=== PATIENT | female | born 1955 | race Caucasian/White ===

== ENCOUNTER 2020-03-14 20:40 | Inpatient (IN) | payer MEDICARE, OTHER ==
[~2020-03-14] VITALS: Ht 170.2 cm; Wt 104.8 kg
--- NOTE | 2020-03-14 21:00 | NUR ---
BIBS FOR C/O "I'M SHAKING, CAN NOT HOLD ANYTHING" ALSO W/ C/O CP AND SOB AND H/A TO ER BED 2 AWIATING MD MOJICA
[2020-03-14] MEDS ORDERED: ONDANSETRON HCL/PF 4 MG/2 ML VIAL ONE (21:28)
[2020-03-14] MEDS ORDERED: MORPHINE SULFATE INJ 4 MG/ML DISP.SYRIN ONE (21:28)
[2020-03-14] MEDS ORDERED: MORPHINE SULFATE INJ 2 MG/ML DISP.SYRIN IV ONE (21:30)
[2020-03-14] MEDS ORDERED: ONDANSETRON HCL/PF 4 MG/2 ML VIAL IVP ONE (21:30)
[2020-03-14 21:33] LABS: BASOPHILS % (AUTO) 0.7 % (0.0-2.0); EOSINOPHILS % (AUTO) 2.3 % (0.0-6.0); HEMATOCRIT 39 % (33-45); HEMOGLOBIN 11.9 g/dL (11.5-14.8); LYMPHOCYTES # (AUTO) 1.3 /CMM (0.8-4.8); LYMPHOCYTES % (AUTO) 29.9 % (20.0-44.0); MEAN CORPUSCULAR HGB CONC 31 g/dl (31.0-36.0); MEAN CORPUSCULAR VOLUME 81 fL (82-100); MONOCYTES # (AUTO) 0.4 /CMM (0.1-1.30); MONOCYTES % (AUTO) 8.4 % (2.0-12.0); NEUTROPHILS # (AUTO) 2.6 /CMM (1.8-8.9); NEUTROPHILS % (AUTO) 58.7 % (43.0-81.0); PLATELET COUNT (AUTO) 167 /CMM (150-450); RED BLOOD CELL COUNT(AUTO) 4.77 MIL/uL (4.0-5.2); WHITE BLOOD COUNT (AUTO) 4.4 K/uL (4.3-11.0)
[2020-03-14 21:42] LABS: CALCIUM, SERUM 9.2 mg/dL (8.5-10.1); CARBON DIOXIDE 28 mmol/L (21-32); CHLORIDE 104 mmol/L (98-107); GLUCOSE 255 mg/dL (74-106); POTASSIUM 5.1 mmol/L (3.5-5.1); SODIUM SERUM 140 mmol/L (136-145); UREA NITROGEN, BLOOD 37 mg/dL (7-18)
--- NOTE | 2020-03-14 21:48 | NUR ---
COVID SWAB COLLECTED AND SENT TO LAB
--- NOTE | 2020-03-14 21:52 | NUR ---
TECH AT BEDSIDE FOR XRAY
[2020-03-14 21:54] LABS: ALANINE AMINOTRANSFERASE 64 U/L (12-78); ALBUMIN 3.4 g/dL (3.4-5.0); ALKALINE PHOSPHATASE 98 U/L (46-116); ASPARTATE AMINOTRANSFERASE 40 U/L (15-37); B-TYPE NATRIURETIC PEPTIDE 42 PG/ML (0-125); BILIRUBIN,DIRECT 0.1 mg/dL (0.0-0.2); BILIRUBIN,TOTAL 0.2 mg/dL (0.2-1.0); TOTAL PROTEIN, SERUM 8.2 g/dL (6.4-8.2)
[2020-03-14] MEDS ORDERED: IV NS 0.9% 1,000 ML BAG IV ONE (22:30)
--- NOTE | 2020-03-14 22:46 | NUR ---
covid swab sample collected and sent to the lab.
[2020-03-15] VITALS (7 sets, daily range): BP systolic 113–140; BP diastolic 53–77
[2020-03-15] MEDS ORDERED: ACETAMINOPHEN 325 MG TABLET PO PRN (00:30)
[2020-03-15] MEDS ORDERED: Z GUARD REMEDY 2 OZ OINT TP PRN (00:30)
[2020-03-15] MEDS ORDERED: ONDANSETRON HCL/PF 4 MG/2 ML VIAL IVP PRN (00:30)
[2020-03-15] MEDS ORDERED: MAGNESIUM HYDROXIDE 30 ML UDC PO PRN (00:30)
[2020-03-15] MEDS ORDERED: MAG HYDROX/AL HYDROX/SIMETH 30 ML UDC PO PRN (00:30)
[2020-03-15] MEDS ORDERED: MIRT15TA7 PO (01:09)
[2020-03-15] MEDS ORDERED: LISI1TAB32 PO (01:09)
[2020-03-15] MEDS ORDERED: GABA-532 PO (01:09)
[2020-03-15] MEDS ORDERED: METF-442 PO (01:09)
[2020-03-15] MEDS ORDERED: DULO20CA PO (01:09)
[2020-03-15] MEDS ORDERED: TRAZ-257 PO (01:09)
[2020-03-15] MEDS ORDERED: HYDR-3642 PO (01:09)
[2020-03-15] MEDS ORDERED: GLIP5TAB13 PO (01:09)
[2020-03-15] MEDS ORDERED: BACL10TA PO (01:09)
[2020-03-15] MEDS ORDERED: ARIP20TA4 PO (01:09)
[2020-03-15] MEDS ORDERED: MONT10TA22 PO (01:09)
[2020-03-15] MEDS ORDERED: ALLO100T PO (01:09)
--- NOTE | 2020-03-15 01:33 | NUR ---
pt was tansferred to the floor under ACLS
[2020-03-15] MEDS: ZOLPIDEM TARTRATE 5 MG TABLET PO PRN (02:06)
[2020-03-15] MEDS: HYDROCODONE/APAP 5/325MG TABLET PO PRN ×2 (02:07→21:08)
--- NOTE | 2020-03-15 02:10 | NUR ---
TELE/RN NOTES PATIENT REPORTED PAIN OF 6/10 IN MID CHEST FOR PAIN MEDICATION NORCO GIVEN AND REQUESTED FOR MEDICATION TO HELP HER SLEEP, ABLE TO TOLERATE FLUIDS, ALERT, ORIENTED X3.
--- NOTE | 2020-03-15 02:12 | NUR ---
TELE/RN NEW ADMISSION NOTES PATIENT RECEIVED ON A GURNEY ACCOMPANIED BY ER NURSE AND ATTENDANT, ON TELE AT SINUS RHYTHM, PSTIENT IS ALERT, ORIENTED X3, AMBULATORY WITH REPORTED MID CHEST PAIN OF 6/10 AND UNABLE TOP SLEEP THAT REQUIRE SLEEPING MED. MEDICATION FOR HOME REPORTED, PATIENT BELONGINGS CHECK AND WITH GRIFFIN 44 DOLLARS PREFER TO BE KEPT AT BEDSIDE, WITNESSED BY FURNACE COMBUSTION ANALYST. ROOM ORIENTATION PROVIDED, SKIN INTACT, ABLE TO DRINK AND EAT TOLERATED, MONITORED FOR ANY CHANGES,BED LOCKED, CALL LIGHTS WITHIN REACH. MD BALDWIN IS THE ADMITING MD.
--- NOTE | 2020-03-15 06:00 | NUR ---
MS/RN NOTES HOME MEDICATIONS BROUGHT TO PHARMACY WITH PATIENT CONSENT AND SIGNED.
--- NOTE | 2020-03-15 07:11 | NUR ---
321-2 TELE/RN NOTES PATIENT ABLE TO SLEEP FOR FEW HOURS, ALERT, ORIENTED X3, ABLE TO VERBALIZE NEEDS, KEPT COMFORTABLE, PAIN MANGAED BY MEDICATION. BED LOCKED, CALL LIGTHS WITHIN REACH, WILL ENDORSE TO AM RN FOR THAI. IV SITE ON LEFT AC, PATENT..
[2020-03-15] MEDS ORDERED: hydrOXYzine 10 MG TABLET PO SCH (08:00)
[2020-03-15] MEDS ORDERED: BACLOFEN (10 MG) 10 MG TABLET PO PRN (08:00)
--- NOTE | 2020-03-15 08:03 | NUR ---
SYRUP MACHINE LABORER NOTE PATIENT IN BED , ALERT ORIENTED X4, ON RA NO SOB NOTED AT THIS TIME, LT AC HL INTACT AND FLUSHED WELL , BED IN LOWEST AND LOCKED POSITION , SEEN BY DR MARSHALL AT BEDSIDE,PLAN OF CARE DISCUSSED WITH PATIENT, WILL MONITOR
[2020-03-15] MEDS ORDERED: MAGN250T2 PO (08:28)
[2020-03-15] MEDS ORDERED: OMEP40CA13 PO (08:28)
[2020-03-15] MEDS ORDERED: ACET-2605 PO (08:28)
[2020-03-15] MEDS ORDERED: ATOR40TA PO (08:28)
[2020-03-15] MEDS ORDERED: MELA1TAB25 PO (08:28)
[2020-03-15] MEDS: GABAPENTIN 100 MG CAPSULE PO SCH ×3 (08:34→16:14)
[2020-03-15] MEDS: MONTELUKAST SODIUM (10MG) 10 MG TABLET PO SCH (08:34)
[2020-03-15] MEDS ORDERED: INSU100V7 SQ (08:34)
[2020-03-15] MEDS: glipiZIDE 5 MG TABLET PO SCH (08:34)
[2020-03-15] MEDS: DULOXETINE HCL 20 MG CAPSULE.DR PO SCH ×2 (08:35→16:14)
[2020-03-15] MEDS: ATORVASTATIN 10 MG TABLET PO SCH (08:35)
[2020-03-15] MEDS: ASPIRIN 81 MG TAB.CHEW PO SCH (08:36)
[2020-03-15] MEDS: ALLOPURINOL 100 MG TABLET PO SCH (08:36)
[2020-03-15] MEDS: CARVEDILOL 12.5 MG TABLET PO SCH ×2 (08:37→21:09)
[2020-03-15] MEDS: MIRTAZAPINE 15 MG TABLET PO SCH (08:38)
[2020-03-15 08:40] LABS: THYROID STIMULATING HORMONE 1.616 uIU/mL (0.358-3.74)
[2020-03-15 08:41] LABS: MAGNESIUM 2.1 mg/dL (1.8-2.4); PHOSPHORUS 3.7 mg/dL (2.5-4.9)
--- NOTE | 2020-03-15 08:41 | NUR ---
CONCRETE FOREMAN NOTE 2D ECHO DONE ORDERED
[2020-03-15] MEDS: IV NS 0.9% 1,000 ML IV PRN ×2 (08:44→17:10)
--- NOTE | 2020-03-15 11:14 | NUR ---
vanessa downs note patient refused dvt md nery aware ,offered and explained of importance but still refused able to ambulate well Addendum: 03/15/20 at 1120 by [address]IVA HOGUE RN dr rachid kendall that bun 37 creat 2.0 Addendum: 03/15/20 at 1143 by SIVA HOGUE RN vanessa melendez collected as ordered
--- NOTE | 2020-03-15 11:47 | NUR ---
KITCHEN MECHANIC NOTE SPOKE WITH DR ALBERT NOTIFIED THAT PER MED RECON PATIENT TAKING INSULIN LANTUS STATED THAT WILL CHECK IT OUT
[2020-03-15 12:23] LABS: CREATININE, URINE 27.6 MG/DL (30.0-125.0); URINE TOTAL PROTEIN 4.6 mg/dL (0-11.9)
[2020-03-15 13:07] LABS: APPEARANCE,URINE CLEAR (CLEAR); BILIRUBIN,URINE NEGATIVE (NEGATIVE); BLOOD, URINE NEGATIVE Ery/uL (NEGATIVE); COLOR,URINE YELLOW (YELLOW); KETONES,URINE NEGATIVE (NEGATIVE); LEUKOCYTE ESTERASE ,URINE NEGATIVE (NEGATIVE); NITRITE, URINE NEGATIVE (NEGATIVE); PROTEIN,URINE NEGATIVE (NEGATIVE); UGLUCOSE >=1000 mg/dL (NEGATIVE); UROBILINOGEN,URINE 0.2 EU/dL (0.2)
[2020-03-15 13:16] LABS: BACTERIA,URINE None seen /HPF (None Seen); RBC,URINE NONE SEEN /HPF (0-2); SQUAMOUS EPITHELIAL CELL,UR Few /HPF (None Seen); WBC,URINE NONE SEEN /HPF (0-3)
[2020-03-15 13:17] LABS: EOSINOPHIL,URINE None Seen
--- NOTE | 2020-03-15 13:53 | NUR ---
television news photographer note spoke with dr marshall notified that vte score 2 patient reused dvt pump ordered Lovenox per pharmacy dose Addendum: 03/15/20 at 1548 by SIVA HOGUE RN REFUSED DVT PUMPS TO HAVE DR MARSHALL NOTIFIED
[2020-03-15] MEDS ORDERED: ENOXAPARIN SODIUM 100 MG/ML DISP.SYRIN SQ SCH (14:30)
[2020-03-15] MEDS ORDERED: ENOXAPARIN SODIUM 30 MG/0.3 ML DISP.SYRIN SQ SCH (15:00)
--- NOTE | 2020-03-15 15:49 | NUR ---
MACHINE BRUSH MAKER NOTE AMBULATED WELL AROUND HER ROOM , NOT IN DISTRESS
[2020-03-15] MEDS: BLOOD SUGAR DIAGNOSTIC 1 EACH STRIP IN SCH ×3 (17:37→21:06)
[2020-03-15] MEDS ORDERED: DEXTROSE 50%-WATER 50 ML DISP.SYRIN IV PRN (18:30)
--- NOTE | 2020-03-15 18:51 | NUR ---
JAMAL RN NOTE ALL NEEDS ATTENDED, NOT IN DISTRESS
--- NOTE | 2020-03-15 20:00 | NUR ---
MS/RN OPENING NOTES RECEIVED PATIENT IN BED, AWAKE, ALERT X3, ABLE TO VERBALIZE NEEDS, ON ROOM AIR, ABLE TO EAT DINNER AND BLOOD SUGAR WAS ELEVATED WITH NEEDED COVERAGE OF INSULIN ORDERED, PATIENT AMBULATORY AND BED LOCKED, CALL LIGHTS WITHIN REACH, WILL MONITOR, RECEIVED ENDORSEMENT FROM AM RN FOR THAI.
--- NOTE | 2020-03-15 20:10 | NUR ---
MS/RN NOTES IV FLUIDS INFUSING ON LEFT AC. AT 125 ML/HR, PATIENT ABLE TO USE CALL LIGHTS
[2020-03-15] MEDS: INSULIN REGULAR, HUMAN 100 UNIT/ML 3 ML VIAL SQ PRN (21:37)
[2020-03-16] MEDS: ZOLPIDEM TARTRATE 5 MG TABLET PO PRN (00:20)
--- NOTE | 2020-03-16 00:21 | NUR ---
MS/RN NOTES PATIENT REPORTED PAIN OF 7/10 BACK PAIN, NORCO 5-325 MG PO PRESCRIBED NEEDED, PATIENT PROVIDED MEDICATION SIDE EFFECTS, VERBALZIED UNDERSTANDING, MONITORED FOR PAIN RELIEF.
--- NOTE | 2020-03-16 00:22 | NUR ---
ms/rn notes PATIENT REQUESTED FOR SLEEPING PILL, NEEDED KWAME REQUESTED WITH PRESCRIBED DOSE TO MONITOR SLEEP.
[2020-03-16] MEDS: IV NS 0.9% 1,000 ML IV PRN (03:01)
--- NOTE | 2020-03-16 06:20 | NUR ---
321-2 MS/RN NOTES PATIENT ALERT, ORIENTED, ABLE TO VERBALZIE NEEDS,HAD AMBULATED WITH ASSIST IN HALLWAY, RESPIRATIONS EVEN AND UNLABORED BED LOCKED,CALL LIGHTS WITHIN REACH, ATTENDED ALL NEEDS,KEPT COMFORTABLE, COMPLIANT TO TREATMENT AND MEDICATION. WILL ENDORSE TO AM RN FOR THAI.
[2020-03-16 06:22] LABS: BASOPHILS % (AUTO) 0.8 % (0.0-2.0); EOSINOPHILS % (AUTO) 3.3 % (0.0-6.0); HEMATOCRIT 37 % (33-45); HEMOGLOBIN 11.5 g/dL (11.5-14.8); LYMPHOCYTES # (AUTO) 1.8 /CMM (0.8-4.8); LYMPHOCYTES % (AUTO) 42.6 % (20.0-44.0); MEAN CORPUSCULAR HGB CONC 31 g/dl (31.0-36.0); MEAN CORPUSCULAR VOLUME 80 fL (82-100); MONOCYTES # (AUTO) 0.3 /CMM (0.1-1.30); NEUTROPHILS # (AUTO) 1.9 /CMM (1.8-8.9); NEUTROPHILS % (AUTO) 45.3 % (43.0-81.0); PLATELET COUNT (AUTO) 159 /CMM (150-450); RED BLOOD CELL COUNT(AUTO) 4.61 MIL/uL (4.0-5.2); WHITE BLOOD COUNT (AUTO) 4.3 K/uL (4.3-11.0)
[2020-03-16 06:37] LABS: ALANINE AMINOTRANSFERASE 54 U/L (12-78); ALKALINE PHOSPHATASE 80 U/L (46-116); ASPARTATE AMINOTRANSFERASE 34 U/L (15-37); BILIRUBIN,TOTAL 0.2 mg/dL (0.2-1.0); CALCIUM, SERUM 8.4 mg/dL (8.5-10.1); CARBON DIOXIDE 28 mmol/L (21-32); CHLORIDE 106 mmol/L (98-107); CHOLESTEROL 139 mg/dL (<200); CREATININE 1.1 mg/dL (0.6-1.3); GLUCOSE 201 mg/dL (74-106); HDL CHOLESTEROL 37 mg/dL (40-60); LDL 86 mg/dL (0-99); MAGNESIUM 1.6 mg/dL (1.8-2.4); PHOSPHORUS 3.2 mg/dL (2.5-4.9); POTASSIUM 4.3 mmol/L (3.5-5.1); SODIUM SERUM 142 mmol/L (136-145); TOTAL PROTEIN, SERUM 6.9 g/dL (6.4-8.2); TRIGLYCERIDES 199 mg/dL (30-150); UREA NITROGEN, BLOOD 21 mg/dL (7-18)
[2020-03-16] MEDS: BLOOD SUGAR DIAGNOSTIC 1 EACH STRIP IN SCH ×4 (06:39→11:37)
--- NOTE | 2020-03-16 06:43 | NUR ---
BS CHECK AT 188 BEFORE BREAKFAST,
[2020-03-16] MEDS: INSULIN REGULAR, HUMAN 100 UNIT/ML 3 ML VIAL SQ PRN ×2 (06:52→11:26)
--- NOTE | 2020-03-16 07:54 | NUR ---
MS/RN OPENING NOTES RECEIVED PATIENT ALERT, ORIENTED, ABLE TO VERBALIZE NEEDS, RESPIRATIONS EVEN AND UNLABORED. NO COMPLAINED OF PAIN AT THIS TIME. BED LOCKED,CALL LIGHTS WITHIN REACH, WILL CONTINUE TO MONITOR.
[2020-03-16] MEDS: ASPIRIN 81 MG TAB.CHEW PO SCH (08:11)
[2020-03-16] MEDS: ATORVASTATIN 10 MG TABLET PO SCH (08:12)
[2020-03-16] MEDS: ALLOPURINOL 100 MG TABLET PO SCH (08:12)
[2020-03-16] MEDS: MONTELUKAST SODIUM (10MG) 10 MG TABLET PO SCH (08:12)
[2020-03-16] MEDS: MIRTAZAPINE 15 MG TABLET PO SCH (08:12)
[2020-03-16] MEDS: CARVEDILOL 12.5 MG TABLET PO SCH (08:12)
[2020-03-16] MEDS: DULOXETINE HCL 20 MG CAPSULE.DR PO SCH (08:12)
[2020-03-16 08:31] VITALS: BP 130/87
[2020-03-16] MEDS: glipiZIDE 5 MG TABLET PO SCH (08:36)
[2020-03-16] MEDS: GABAPENTIN 100 MG CAPSULE PO SCH ×2 (08:36→12:34)
[2020-03-16] MEDS: HYDROCODONE/APAP 5/325MG TABLET PO PRN (08:47)
--- NOTE | 2020-03-16 08:48 | NUR ---
MS/RN NOTES PATIENT COMPLAINED OF PAIN RATED 10/10. PATIENT ASK FOR NORCO 5/325MG 1 TAB P.O. WILL CONTINUE TO MONITOR.
[2020-03-16] MEDS ORDERED: IV NS 0.9% 250 ML IV ONE (09:25)
[2020-03-16] MEDS ORDERED: IOHEXOL-350 100 ML VIAL IV ONE (09:25)
--- NOTE | 2020-03-16 09:51 | NUR ---
FIRE SUPPORT MAN/RN POST CTA PROCEDURE WELL TOLERATED BY THE PT. NOT IN RESPIRATORY DISTRESS, V/S STABLE, KEPT RESTED AND COMFORTABLE. REPORT GIVEN TO HEYDI LIRA FOR THAI.
[2020-03-16] MEDS ORDERED: METOPROLOL TARTRATE INJ 5 MG/5 ML AMPUL IVP PRN (10:00)
[2020-03-16] MEDS ORDERED: NITROGLYCERIN 0.4 MG/TAB BOTTLE SL ONE (10:00)
[2020-03-16] MEDS ORDERED: IV NS 0.9% 500 ML IV PRN (10:00)
[2020-03-16] MEDS: Magnesium 1GM/D5W 100ML PREMIX 100 ML IV SCH ×2 (10:09→11:26)
--- NOTE | 2020-03-16 15:43 | NUR ---
MS/RN NOTES PATIENT IS ALERT AND ORIENTED X4. PATIENT DENIES PAIN AT THIS. IN ROOM AIR AND SATURATION IS AT 98%. RESPIRATION REGULAR AND UNLABORED. THE PATIENT IN NO APPARENT DISTRESS. SEEN AND EXAMINED BY MD WITH ORDERS MADE AND CARRIED OUT. ALL DUE MEDICATION WAS GIVEN. PATIENT DISCHARGED AT 1510. PATIENT WAS GIVEN DISCHARGED INSTRUCTIONS AND PATIENT VERBALIZED UNDERSTANDING. THE PATIENT LEFT THE HOSPITAL ALONE IN STABLE CONDITION. GO HOME VIA [facility].
[2020-03-16 15:52] VITALS: BP 124/95
[2020-03-17] MEDS ORDERED: ALLOPURINOL 100 MG TABLET PO SCH (09:00)
[2020-03-17] MEDS ORDERED: MONTELUKAST SODIUM (10MG) 10 MG TABLET PO SCH (18:00)
== END 2020-03-16 15:10 | disposition home or self-care (01) | DRG 303 ==
LOC: ER 20:46 → TELE 03-15 01:04 → MED 03-15 09:57
DX: I25.10 Atherosclerotic heart disease of native coronary artery without angina pectoris (principal); N17.9 Acute kidney failure, unspecified; I12.9 Hypertensive chronic kidney disease with stage 1 through stage 4 chronic kidney disease, or unspecified chronic kidney disease; N18.3 Chronic kidney disease, stage 3 (moderate); E11.22 Type 2 diabetes mellitus with diabetic chronic kidney disease; E78.5 Hyperlipidemia, unspecified; G89.29 Other chronic pain; G25.0 Essential tremor; Z87.442 Personal history of urinary calculi; R51 Headache; E66.9 Obesity, unspecified; Z68.36 Body mass index [BMI] 36.0-36.9, adult; Z79.84 Long term (current) use of oral hypoglycemic drugs; E11.319 Type 2 diabetes mellitus with unspecified diabetic retinopathy without macular edema; Z79.4 Long term (current) use of insulin
CPT/HCPCS: 36415; 71045-TC; 75574; 80048-TC; 80053-TC; 80061-TC; 80076-TC; 81000-TC; 82570-TC; 82728-TC; 82962-TC; 83540-TC; 83735-TC; 83880; 84100-TC; 84155-TC; 84300-TC; 84439-TC; 84443-TC; 84484-TC; 84550-TC; 85025-TC; 87081-TC; 93307-TC; C9803-CS; G0378; J1650; J1815; J2270; J2405; J3475; J7030; J7050; Q9967; U0003-CS

== ENCOUNTER 2022-06-03 14:29 | Inpatient (IN) | payer BC, MEDICAID, OTHER ==
[~2022-06-03] VITALS: Ht 170.2 cm; Wt 102.1 kg
[~2022-06-03 14:29] MED LIST: ACET-2605 PO; ALLO100T PO; ARIP20TA4 PO; ATOR40TA PO; AZIT1PAC9 PO; BACL10TA PO; DULO20CA PO; GABA-532 PO; GABA300C PO; GLIP5TAB13 PO; HYDR-3642 PO; INDO-13 PO; INSU100V7 SQ; LISI10TA29 PO; LISI1TAB32 PO; MAGN250T2 PO; MELA1TAB25 PO; METF-442 PO; MIRT-90 PO; MIRT7.5T10 PO; MONT10TA22 PO; OMEP40CA21 PO; TRAZ-257 PO
--- NOTE | 2022-06-03 14:40 | NUR ---
RCEIVED PT WALKING IN FROM HOME C/O HR fast over 130b/min sent from clinic s/p coloscopy toay awake and alert respiration spont and easy
[2022-06-03] MEDS ORDERED: IV NS 0.9% 1,000 ML BAG IV ONE ×2 (15:00→19:00)
--- NOTE | 2022-06-03 15:06 | NUR ---
BLOOD DRAWN AND SENT TO LAB
[2022-06-03 15:12] LABS: BASOPHILS # (AUTO) 0.1 K/uL (0.0-0.2); BASOPHILS % (AUTO) 0.7 % (0.0-2.0); EOSINOPHILS % (AUTO) 0.8 % (0.0-6.0); HEMATOCRIT 41 % (33-45); LYMPHOCYTES # (AUTO) 1.9 K/uL (0.8-4.8); LYMPHOCYTES % (AUTO) 23.8 % (20.0-44.0); MEAN CORPUSCULAR HGB CONC 32 g/dl (31.0-36.0); MEAN CORPUSCULAR VOLUME 79 fL (82-100); MONOCYTES # (AUTO) 0.4 K/uL (0.1-1.30); MONOCYTES % (AUTO) 4.8 % (2.0-12.0); NEUTROPHILS # (AUTO) 5.7 K/uL (1.8-8.9); NEUTROPHILS % (AUTO) 69.9 % (43.0-81.0); PLATELET COUNT (AUTO) 180 K/uL (150-450); RED BLOOD CELL COUNT(AUTO) 5.21 MIL/uL (4.0-5.2); WHITE BLOOD COUNT (AUTO) 8.1 K/uL (4.3-11.0)
[2022-06-03 15:31] LABS: ALANINE AMINOTRANSFERASE 9 U/L (12-78); ALBUMIN 3.9 g/dL (3.4-5.0); ALKALINE PHOSPHATASE 80 U/L (46-116); ASPARTATE AMINOTRANSFERASE 11 U/L (15-37); BILIRUBIN,DIRECT 0.1 mg/dL (0.0-0.2); BILIRUBIN,TOTAL 0.4 mg/dL (0.2-1.0); CALCIUM, SERUM 9.2 mg/dL (8.5-10.1); CARBON DIOXIDE 25 mmol/L (21-32); CHLORIDE 97 mmol/L (98-107); GLUCOSE 186 mg/dL (74-106); POTASSIUM 4.1 mmol/L (3.5-5.1); SODIUM SERUM 136 mmol/L (136-145); TOTAL PROTEIN, SERUM 8.4 g/dL (6.4-8.2); UREA NITROGEN, BLOOD 50 mg/dL (7-18)
[2022-06-03 15:34] LABS: CREATININE 7.5 mg/dL (0.6-1.3)
--- NOTE | 2022-06-03 17:28 | NUR ---
JOSE MCKEON SENT TO LAB
[2022-06-03] MEDS ORDERED: HYDROCODONE/APAP 5/325MG TABLET PO PRN (17:30)
[2022-06-03] MEDS ORDERED: BACLOFEN (10 MG) 10 MG TABLET PO PRN (17:30)
[2022-06-03] MEDS ORDERED: ONDANSETRON HCL/PF 4 MG/2 ML VIAL IVP PRN (17:30)
[2022-06-03] MEDS ORDERED: ACETAMINOPHEN 325 MG TABLET PO PRN (17:30)
[2022-06-03] MEDS ORDERED: CARB1TAB21 PO (18:16)
[2022-06-03] MEDS ORDERED: FLUT16SP (18:16)
[2022-06-03] MEDS ORDERED: QUET25TA PO (18:16)
[2022-06-03] MEDS ORDERED: INSU100V7 SQ ×2 (18:16)
[2022-06-03] MEDS ORDERED: INSU100V27 SQ (18:16)
[2022-06-03] MEDS ORDERED: LISI1TAB55 PO (18:16)
[2022-06-03] MEDS ORDERED: LEVE500T9 PO (18:16)
--- NOTE | 2022-06-03 18:58 | NUR ---
DR. DEL ROSARIO AT BED SIDE REQUSTED BLADDER SCAN TO BE DONE AND CALL FOR RESULT GIVE ONE LITER NS GIVEN
--- NOTE | 2022-06-03 19:20 | NUR ---
BLADDER SCAN DONE 301ML DR. DEL ROSARIO CALLED AND LUIS ALBERTO
--- NOTE | 2022-06-03 19:35 | NUR ---
SPOKE TO DR DEL ROSARIO WITH FOLLOWING ORDERS: LASIX 40MG IV X 1 NOW IVF NS 1000 ML IV X [address] BURCH FOR NO OUTPUT BY 2200
--- NOTE | 2022-06-03 19:36 | NUR ---
HAND OFF DWAINE SOLIZ
[2022-06-03] MEDS ORDERED: FUROSEMIDE 40 MG/4 ML VIAL ONE ×2 (19:39→22:13)
[2022-06-03] MEDS ORDERED: FUROSEMIDE 40 MG/4 ML VIAL IV ONE ×3 (20:00→22:30)
[2022-06-03] MEDS ORDERED: IV NS 0.9% 1,000 ML IV ONE (20:00)
--- NOTE | 2022-06-03 20:25 | NUR ---
16f PRECIADO CATHETER INSERTED WITH APPROX 300ML PALE YELLOW OUTPUT
--- NOTE | 2022-06-03 21:49 | NUR ---
SPOKE TO DR DEL ROSARIO WITH FOLLOWING ORDERS: LASIX 40MG IV X 1 NOW IVF NS 200ml/hr ML IV X 1 NOW
[2022-06-03] MEDS ORDERED: MIRTAZAPINE 15 MG TABLET ONE (22:15)
[2022-06-03] MEDS: MIRTAZAPINE 15 MG TABLET PO SCH (22:25)
[2022-06-03] MEDS ORDERED: IV NS 0.9% 1,000 ML IV PRN (22:30)
--- NOTE | 2022-06-04 01:08 | NUR ---
Note marysol in ED - 06/04/22 at 0108 by LEONARD PT SLEEPING COMOFRTABLY BREATHING UNLABORED. REMAINS ON MONITOR AND V/S WNL. CALL LIGHT WITHIN REACH.
--- NOTE | 2022-06-04 01:09 | NUR ---
PT SLEEPING COMOFRTABLY BREATHING UNLABORED. REMAINS ON MONITOR AND V/S WNL. CALL LIGHT WITHIN REACH.
[2022-06-04 02:03] LABS: BILIRUBIN,URINE NEGATIVE (NEGATIVE); LEUKOCYTE ESTERASE ,URINE 1+ (NEGATIVE); NITRITE, URINE NEGATIVE (NEGATIVE); PH,URINE 5.5 (5.0-8.0); PROTEIN,URINE NEGATIVE (NEGATIVE); UGLUCOSE NEGATIVE (NEGATIVE); UROBILINOGEN,URINE 0.2 EU/dL (0.2)
[2022-06-04 02:06] LABS: COLOR,URINE LIGHT YELLOW (YELLOW)
[2022-06-04 02:16] LABS: RBC,URINE NONE SEEN /HPF (0-2)
[2022-06-04 02:18] LABS: BACTERIA,URINE Few /HPF (None Seen); SQUAMOUS EPITHELIAL CELL,UR 0-2 /HPF (None Seen)
--- NOTE | 2022-06-04 03:26 | NUR ---
2300 ML OUTPUT EMPTIED FROM PRECIADO BAG
[2022-06-04 05:34] LABS: BASOPHILS % (AUTO) 0.6 % (0.0-2.0); HEMATOCRIT 37 % (33-45); LYMPHOCYTES # (AUTO) 1.8 K/uL (0.8-4.8); LYMPHOCYTES % (AUTO) 26.1 % (20.0-44.0); MEAN CORPUSCULAR HGB CONC 32 g/dl (31.0-36.0); MEAN CORPUSCULAR VOLUME 79 fL (82-100); MONOCYTES # (AUTO) 0.6 K/uL (0.1-1.30); MONOCYTES % (AUTO) 8.5 % (2.0-12.0); NEUTROPHILS # (AUTO) 4.2 K/uL (1.8-8.9); NEUTROPHILS % (AUTO) 62.8 % (43.0-81.0); PLATELET COUNT (AUTO) 151 K/uL (150-450); RED BLOOD CELL COUNT(AUTO) 4.72 MIL/uL (4.0-5.2); WHITE BLOOD COUNT (AUTO) 6.8 K/uL (4.3-11.0)
[2022-06-04 05:49] LABS: CALCIUM, SERUM 8.3 mg/dL (8.5-10.1); CREATININE 4.8 mg/dL (0.6-1.3); MAGNESIUM 1.9 mg/dL (1.8-2.4); PHOSPHORUS 4.8 mg/dL (2.5-4.9)
--- NOTE | 2022-06-04 07:12 | NUR ---
TELE 293-8
--- NOTE | 2022-06-04 07:42 | NUR ---
PT REPORT GIVEN TO HEYDI WILLINGHAM
[2022-06-04 08:00] VITALS: BP 98/64
--- NOTE | 2022-06-04 08:21 | NUR ---
PT TRANSFERRED TO 312-2 VIA [facility] ACLS PROTOCOL. WARM HANDOFF GIVEN TO HEYDI WILLINGHAM
--- NOTE | 2022-06-04 08:30 | NUR ---
RN NOTES PATIENT CAME TO UNIT VIA GURNEY FROM ER WITH NO SIGN OF DISTRESS. V/S TAKEN STABLE AND RECORDED. SKIN ASSESSMENT DONE, SKIN INTACT. BELONGINGS CHECKED AND SIGNED. PATIENT WAS ORIENTED TO ROOM SET UP AND EDUCATED ON THE USE OF CALL LIGHT. PATIENT AWAKE IN BED RESTING, A/O X 4. NO S/S OF PAIN NOTED AT THIS TIME. ON ROOM AIR, NO DISTRESS OR SHORTNESS OF BREATH NOTED. IV ACCESS LAC #18G, INTACT, PATENT, FLUSHING WELL. PATIENT WITH EXTERNAL BUCKLE GLUER WITH CURRENT READING OF SR AND HR OF 76, NO CARDIAC DISTRESS NOTED AT THIS TIME. PATIENT HAVE A PRECIADO CATHETER IN PLACE AND DRAINING WELL. FALL AND SAFETY MEASURES IN PLACE, BED ALARM ON, BED IN LOW LOCK POSITION, CALL LIGHT AND TABLE WITHIN EASY REACH, SIDE RAILS UP X2. WILL CONTINUE TO MONITOR.
[2022-06-04] MEDS: MONTELUKAST SODIUM (10MG) 10 MG TABLET PO SCH (09:10)
[2022-06-04] MEDS: PANTOPRAZOLE 40 MG TABLET.DR PO SCH (09:10)
[2022-06-04] MEDS: DULOXETINE HCL 20 MG CAPSULE.DR PO SCH ×2 (09:10→16:45)
[2022-06-04] MEDS: ARIPIPRAZOLE 5 MG TABLET PO SCH (09:10)
[2022-06-04] MEDS: GABAPENTIN 100 MG CAPSULE PO SCH ×3 (09:10→16:45)
[2022-06-04] MEDS: ATORVASTATIN 40 MG TABLET PO SCH (09:10)
[2022-06-04 12:00] VITALS: BP 66/36
[2022-06-04] MEDS: IV NS 0.9% 1,000 ML IV PRN (13:27)
[2022-06-04 14:16] VITALS: BP 98/64
--- NOTE | 2022-06-04 18:57 | NUR ---
RN CLOSING NOTE PATIENT AWAKE IN BED RESTING, A/O X 4. NO S/S OF PAIN NOTED AT THIS TIME. ON ROOM AIR, NO DISTRESS OR SHORTNESS OF BREATH NOTED. IV ACCESS LAC #18G, INTACT, PATENT, FLUSHING WELL. PATIENT WITH EXTERNAL EXPORT ADMINISTRATOR WITH CURRENT READING OF SR AND HR OF 76, NO CARDIAC DISTRESS NOTED AT THIS TIME. PATIENT HAVE A PRECIADO CATHETER IN PLACE AND DRAINING WELL, OUTPUT 800ML. SCHEDULE MEDICATIONS ADMINISTERED. ALL NEEDS ATTENDED AND ANTICIPATED. FALL AND SAFETY MEASURES IN PLACE, BED ALARM ON, BED IN LOW LOCK POSITION, CALL LIGHT AND TABLE WITHIN EASY REACH, SIDE RAILS UP X2. WILL ENDORSE TO SENIOR ACCOUNT REPRESENTATIVE.
--- NOTE | 2022-06-04 19:12 | NUR ---
RN NOTES: RECEIVED AWAKE ON BED, WATCHING TV, A/O3-4 GUINEAN SPEAKING, ABLE TO COMMUNICATE IN [place], NO COMPLAINTS OF PAIN OR DISCOMFORT, NO SOB, ON ROOM AIR, TELE MONITOR SR-72, ORIENTED TO UNIT AND STAFF, KEPT CALL LIGHT WITHIN EASY REACH, IV CANNULA ON LAC G#18 INTATC AND PATENT, NS AT 75 ML/HR ONGOING, SHE IS AMBULATORY, CONTINENT BOTH B/B.ORIENTED TO UNIT AND STAFF. Addendum: 06/05/22 at 0012 by RYANN ALSTON RN ADDED NOTES: ON PRECIADO CATH, DRAINING INTO YELLOWISH COLORED URINE AT 100 CC LEVEL.
[2022-06-04 20:00] VITALS: BP 108/52
[2022-06-04] MEDS: MIRTAZAPINE 15 MG TABLET PO SCH (21:32)
[2022-06-04 23:39] VITALS: BP 122/53
[2022-06-05] VITALS: BP 122/53
[2022-06-05] MEDS: IV NS 0.9% 1,000 ML IV PRN (02:12)
--- NOTE | 2022-06-05 02:13 | NUR ---
RN NOTES: ABLE TO SLEEP AND REST, ESSENTIAL TREMOR NOTED ON BOTH HANDS, AFEBRILE, NO COMPLAINTS, IVF CONSUME, NEW BOTTLE OF NS AT 75 ML/HR STARTED.
[2022-06-05 04:00] VITALS: BP 122/53
[2022-06-05 04:54] VITALS: BP 123/72
--- NOTE | 2022-06-05 06:46 | NUR ---
RN NOTES: SHE WAS DELIGHTED SHE WAS ABLE TO SLEEP LAST NIGHT, NO DISCOMFORT, ADEQUATE URINE OUTPUT, BLOOD EXTRACTED FOR LABS THIS MORNING, IVF CONTINUE ON SR-73,PRECIADO CATH OUTPUT-1,200CC.ENDORSED FOR CONTINUITY OF CARE.
[2022-06-05 06:59] LABS: BILIRUBIN,TOTAL 0.3 mg/dL (0.2-1.0); CALCIUM, SERUM 8.6 mg/dL (8.5-10.1); CREATININE 2.3 mg/dL (0.6-1.3); MAGNESIUM 1.8 mg/dL (1.8-2.4); PHOSPHORUS 3.3 mg/dL (2.5-4.9); POTASSIUM 4.1 mmol/L (3.5-5.1); TOTAL PROTEIN, SERUM 7.3 g/dL (6.4-8.2)
[2022-06-05 07:12] LABS: ALBUMIN 3.3 g/dL (3.4-5.0)
--- NOTE | 2022-06-05 07:49 | NUR ---
RN NOTES PATIENT AWAKE IN BED RESTING, A/O X 4. NO S/S OF PAIN NOTED AT THIS TIME. ON ROOM AIR, NO DISTRESS OR SHORTNESS OF BREATH NOTED. IV ACCESS LAC #18G, INTACT, PATENT, FLUSHING WELL. PATIENT WITH EXTERNAL NURSE ESTHETICIAN WITH CURRENT READING OF SR , NO CARDIAC DISTRESS NOTED AT THIS TIME. PRECIADO CATHETER DRAINING WELL. ALL NEEDS ATTENDED AND ANTICIPATED. FALL AND SAFETY MEASURES IN PLACE, BED ALARM ON, BED IN LOW LOCK POSITION, CALL LIGHT AND TABLE WITHIN EASY REACH, SIDE RAILS UP X2. WILL CONTINUE TO MONITOR.
[2022-06-05] MEDS: PANTOPRAZOLE 40 MG TABLET.DR PO SCH (07:58)
[2022-06-05 08:00] VITALS: BP 154/79
[2022-06-05 08:33] LABS: BASOPHILS % (AUTO) 0.5 % (0.0-2.0); EOSINOPHILS % (AUTO) 1.1 % (0.0-6.0); HEMATOCRIT 38 % (33-45); HEMOGLOBIN 12.3 g/dL (11.5-14.8); LYMPHOCYTES # (AUTO) 1.2 K/uL (0.8-4.8); LYMPHOCYTES % (AUTO) 18.6 % (20.0-44.0); MEAN CORPUSCULAR HGB CONC 32 g/dl (31.0-36.0); MEAN CORPUSCULAR VOLUME 79 fL (82-100); MONOCYTES # (AUTO) 0.4 K/uL (0.1-1.30); MONOCYTES % (AUTO) 6.2 % (2.0-12.0); NEUTROPHILS # (AUTO) 4.9 K/uL (1.8-8.9); NEUTROPHILS % (AUTO) 73.6 % (43.0-81.0); PLATELET COUNT (AUTO) 144 K/uL (150-450); WHITE BLOOD COUNT (AUTO) 6.6 K/uL (4.3-11.0)
[2022-06-05] MEDS: DULOXETINE HCL 20 MG CAPSULE.DR PO SCH ×2 (08:40→16:17)
[2022-06-05] MEDS: ATORVASTATIN 40 MG TABLET PO SCH (08:40)
[2022-06-05] MEDS: GABAPENTIN 100 MG CAPSULE PO SCH ×3 (08:40→16:17)
[2022-06-05] MEDS: MONTELUKAST SODIUM (10MG) 10 MG TABLET PO SCH (08:40)
[2022-06-05] MEDS: ARIPIPRAZOLE 5 MG TABLET PO SCH (08:40)
[2022-06-05] MEDS ORDERED: DEXTROSE 50%-WATER 50 ML DISP.SYRIN IV PRN (11:30)
[2022-06-05] MEDS: BLOOD SUGAR DIAGNOSTIC 1 EACH STRIP IN SCH ×3 (11:45→21:08)
[2022-06-05] MEDS: INSULIN REGULAR, HUMAN 100 UNIT/ML 3 ML VIAL SQ PRN ×2 (11:48→21:17)
[2022-06-05 16:00] VITALS: BP 118/69
--- NOTE | 2022-06-05 18:50 | NUR ---
RN Closing Report Patient AOx4 able to express her own concerns. Patient remained safe throughout shift, all safety precautions taken, call light and table within reach, bed at lowest position.
[2022-06-05] MEDS ORDERED: POLYVINYL ALCOHOL 15 ML BOTTLE EACHEYE PRN (19:30)
--- NOTE | 2022-06-05 19:30 | NUR ---
MS RN OPENING NOTE RECEIVED PT AWAKE IN BED. A/O X4 AND ABLE TO MAKE NEEDS KNOWN. PT STABLE ON ROOM AIR. NO SOB OR S/S OF RESPIRATORY DISTRESS. BREATHING EVEN AND UNLABORED. IV ACCESS LAC 18G RUNNING NS @ 75 ML/HR, INTACT AND PATENT. WITH PRECIADO CATH IN PLACE DRAINING BY GRAVITY. SAFETY PRECAUTIONS IN PLACE. BED IN LOWEST LOCKED POSITION, HOB ELEVATED, SIDE RAILS UP X2, AND CALL LIGHT AND TABLE WITHIN REACH. ALL NEEDS MET AT THIS TIME.
[2022-06-05 20:00] VITALS: BP 151/67
[2022-06-05] MEDS: MIRTAZAPINE 15 MG TABLET PO SCH (21:08)
[2022-06-06 06:35] LABS: CALCIUM, SERUM 8.4 mg/dL (8.5-10.1); CREATININE 1.3 mg/dL (0.6-1.3); POTASSIUM 4.4 mmol/L (3.5-5.1)
[2022-06-06] MEDS: BLOOD SUGAR DIAGNOSTIC 1 EACH STRIP IN SCH ×3 (06:35→17:44)
[2022-06-06] MEDS: INSULIN REGULAR, HUMAN 100 UNIT/ML 3 ML VIAL SQ PRN ×2 (06:57→12:29)
--- NOTE | 2022-06-06 07:11 | NUR ---
MS RN CLOSING NOTE PATIENT IN BED, ASLEEP BUT EASY TO AROUSE. A/O X4 AND ABLE TO MAKE NEEDS KNOWN. PT STABLE ON ROOM AIR. NO SOB OR S/S OF RESPIRATORY DISTRESS. BREATHING EVEN AND UNLABORED. IV ACCESS LAC 18G RUNNING NS @ 75 ML/HR, INTACT AND PATENT. WITH PRECIADO CATH IN PLACE DRAINING BY GRAVITY WITH YELLOW URINE OUTPUT AT AROUND 1400CC NO HEMATURIA OR SEDIMENTS NOTED. MONITORED FOR ANY S/SX. OF HYPO/HYPERGLYCEMIA. MEDICATED ORDERED. SAFETY PRECAUTIONS IN PLACE. BED IN LOWEST LOCKED POSITION, HOB ELEVATED, SIDE RAILS UP X2, AND CALL LIGHT AND TABLE WITHIN REACH. ALL NURSING NEEDS ATTENDED.
--- NOTE | 2022-06-06 07:20 | NUR ---
ms rn received patient on bed, awake,alert,oriented x4,not in any form of distress, respirations even and unlabored,no sob noted, lungs are clear, abdomen soft,positive bowel sounds, denies pain at this time, will monitor patient,all needs attended.
[2022-06-06] MEDS: IV NS 0.9% 1,000 ML IV PRN (07:57)
[2022-06-06] MEDS: MONTELUKAST SODIUM (10MG) 10 MG TABLET PO SCH (09:00)
[2022-06-06] MEDS: ATORVASTATIN 40 MG TABLET PO SCH (09:01)
[2022-06-06] MEDS: DULOXETINE HCL 20 MG CAPSULE.DR PO SCH ×2 (09:01→17:43)
[2022-06-06] MEDS: GABAPENTIN 100 MG CAPSULE PO SCH ×3 (09:01→17:43)
[2022-06-06] MEDS: PANTOPRAZOLE 40 MG TABLET.DR PO SCH (09:03)
[2022-06-06] MEDS: ARIPIPRAZOLE 5 MG TABLET PO SCH (09:04)
[2022-06-06 09:39] VITALS: BP 152/84
--- NOTE | 2022-06-06 09:45 | NUR ---
ms yareli breakfast served,due meds given,tolerated well, texted dr. rashid to continue levodopa and keppra,waiting for reply.
--- NOTE | 2022-06-06 12:00 | NUR ---
ms rn dr. rashid came w/ order for her to go home today. patient notified of discharge.
[2022-06-06] MEDS: CARBIDOPA/LEVODOPA 25/100 MG 1 UDTAB PO SCH ×2 (15:34→17:43)
[2022-06-06 16:14] VITALS: BP 148/66
--- NOTE | 2022-06-06 16:39 | NUR ---
ms rn on bed, no distress noted, patient will be [employer]et [employer] by at 6pm.
[2022-06-06] MEDS ORDERED: CARBIDOPA/LEVODOPA 25/100 MG 1 UDTAB PO SCH (17:00)
--- NOTE | 2022-06-06 18:30 | NUR ---
ms rn came to picker box operator pt, discharge instructions given and understood, went home,all needs attended.
== END 2022-06-06 18:43 | disposition home or self-care (01) | DRG 684 ==
LOC: ER 14:31 → TRANSITION 22:19 → TELE 06-04 07:20 → MED 06-05 11:37
DX: N17.0 Acute kidney failure with tubular necrosis (principal); I25.10 Atherosclerotic heart disease of native coronary artery without angina pectoris; I10 Essential (primary) hypertension; Z20.822 Contact with and (suspected) exposure to COVID-19; I12.9 Hypertensive chronic kidney disease with stage 1 through stage 4 chronic kidney disease, or unspecified chronic kidney disease; N28.1 Cyst of kidney, acquired; N18.9 Chronic kidney disease, unspecified; Z90.5 Acquired absence of kidney; Z87.442 Personal history of urinary calculi; E11.22 Type 2 diabetes mellitus with diabetic chronic kidney disease; Z79.4 Long term (current) use of insulin; Z79.899 Other long term (current) drug therapy; E66.9 Obesity, unspecified; G25.0 Essential tremor
CPT/HCPCS: 36415; 71045-TC; 76770-TC; 80048-TC; 80053-TC; 80076-TC; 81001; 82962-TC; 83735-TC; 84100-TC; 84484-TC; 85025-TC; 87081-TC; 87086-TC; 93307-TC; 97112-TC; 97116-TC; 97530-TC; C9803; G0378; J1815; J1940; J3490; J7030

== ENCOUNTER 2025-05-27 23:00 | Emergency (ER) | payer MEDICARE, OTHER ==
[~2025-05-27] VITALS: Ht 170.2 cm; Wt 99.8 kg
[~2025-05-27 23:00] MED LIST changes: -ACET-2605 PO; -ALLO100T PO; +AZIT250T PO; +CARB1TAB21 PO; -DULO20CA PO; +FLUT16SP; -GLIP5TAB13 PO; -HYDR-3642 PO; +INSU100V27 SQ; +LEVE500T9 PO; -LISI1TAB32 PO; +LISI1TAB55 PO; -MAGN250T2 PO; -MELA1TAB25 PO; -OMEP40CA21 PO; +QUET25TA PO
[2025-05-28 01:04] LABS: CALCIUM, SERUM 9.2 mg/dL (8.5-10.1); CREATININE 1.4 mg/dL (0.6-1.3); SODIUM SERUM 146.0 mmol/L (136-145); UREA NITROGEN, BLOOD 22.0 mg/dL (7-18)
[2025-05-28 01:09] LABS: ASPARTATE AMINOTRANSFERASE 18.0 U/L (15-37); TOTAL PROTEIN, SERUM 7.9 g/dL (6.4-8.2)
[2025-05-28] MEDS ORDERED: dexaMETHasone SOD PHOSPHATE 1 ML ONE (01:25)
[2025-05-28] MEDS: dexaMETHasone SOD PHOSPHATE 10 MG/ML VIAL IM ONE (01:27)
[2025-05-28 01:52] LABS: PLATELET COUNT (AUTO) 191 K/uL (150-450); RED BLOOD CELL COUNT(AUTO) 5.27 MIL/uL (4.0-5.2); RED CELL DISTRIBUTION WIDTH 15.3 % (11.5-15.0); WHITE BLOOD COUNT (AUTO) 6.7 K/uL (4.3-11.0)
[2025-05-28] MEDS ORDERED: PRED20TA PO (03:21)
[2025-05-28] MEDS ORDERED: CETI10CA8 PO (03:21)
[2025-05-28 03:26] VITALS: BP 136/78; TEMP 98.1; O2SAT 98
== END 2025-05-28 03:26 | disposition home or self-care (01) ==
LOC: ER 23:41
DX: L29.9 Pruritus, unspecified (principal); I10 Essential (primary) hypertension; G20.A1 Parkinson's disease without dyskinesia, without mention of fluctuations; E11.9 Type 2 diabetes mellitus without complications; N20.0 Calculus of kidney; Z79.4 Long term (current) use of insulin; Z79.899 Other long term (current) drug therapy; Z87.442 Personal history of urinary calculi; Z90.5 Acquired absence of kidney
CPT/HCPCS: 99283; 96372; 85025; 36415; 80053; J1100